=== PATIENT | male | born 1970 | race Caucasian/White ===

== ENCOUNTER 2016-12-01 22:18 | Emergency (ER) | payer SELFPAY ==
[~2016-12-01] VITALS: Ht 175.3 cm; Wt 130.0 kg
[2016-12-01 22:24] VITALS: BP 132/66; PULSE 83; RESP 18; TEMP 99; O2SAT 94
[2016-12-01] MEDS ORDERED: LIDOCAINE HCL 1% 50 ML VIAL INFIL ONE (22:30)
--- NOTE | 2016-12-01 22:32 | PD ---
HPI Chief Complaint: Laceration/Skin Injury Time Seen by Provider: 22:25 Travel History International Travel<30 days: No Contact w/Intl Traveler<30days: No Traveled to known affect area: No History of Present Illness HPI [id number] male presents with a laceration to the finger pad of the left fifth finger. He sustained prior to arrival and the patient was attempting to cut a piece of cheese. He has pain, aching, the site of the laceration. Denies any numbness, tingling, range of motion limitation. Last tetanus vaccination within 5 years. No other complaints. [facility] Past Medical History Diminished Hearing: No Past Surgical History Appendectomy: Yes Social History Alcohol Use: No Tobacco Use: No Substance Use: No Allergies-Medications (Allergen,Severity, Reaction): Coded Allergies: No Known Allergies (Verified , 12/01/16) Reported Meds & Prescriptions Reported Meds & Active Scripts Active Review of Systems Musculoskeletal: No: Limited ROM Skin: Positive Other (positive for laceration) Neurologic: No: Paresthesia Physical Exam Narrative GENERAL: Well developed well-nourished male in no acute distress SKIN: Warm and dry. Linear laceration fingerpad left fifth finger. CARDIOVASCULAR: Regular rate and rhythm. No murmur appreciated. RESPIRATORY: No accessory muscle use. Clear to auscultation. Breath sounds equal bilaterally. MUSCULOSKELETAL: No obvious deformities. Skin as noted above with no bony disturbance. Full flexion and extension at the MCP PIP/DIP joints of the affected finger. NEUROLOGICAL: Awake and alert. No obvious cranial nerve deficits. Motor grossly within normal limits. Normal speech. Data Data Last Documented VS Vital Signs Date Time Temp Pulse Resp B/P (MAP) Pulse Ox O2 Delivery O2 Flow Rate FiO2 12/01/16 22:24 99.0 83 18 132/66 (88) 94 Orders Orders Lidocaine 1% Inj (50 Ml) (Xylocaine 1% I (12/01/16 22:30) MDM Medical Decision Making Medical Screen Exam Complete: Yes Emergency Medical Condition: Yes Medical Record Reviewed: Yes Differential Diagnosis Laceration, neurovascular injury, open fracture, flexor tendon injury Narrative Course 46-year-old male presents with a laceration to the finger pad of the left fifth finger. The laceration was repaired with sutures, he verbally consented. He is stable for discharge. Procedures Procedure Narrative LACERATION LOCATION: Left fifth finger LENGTH: 1.5 cm NUMBER OF STITCHES/VÍCTOR: 6 REPAIR: The area of the laceration was prepped with Betadine and sterilely draped. The laceration was infiltrated with 1% lidocaine digital block. The wound was copiously irrigated and explored without evidence of foreign body, tendon injury or neurovascular injury. The wound was closed using 5-0 PROLENE simple interrupted. This was a single layer repair. A sterile dressing was applied. The patient was advised to keep the dressing clean and dry. Patient tolerated the procedure well. Diagnosis Primary Impression: Finger laceration Qualified Codes: S61.217A - Laceration without foreign body of left little finger without damage to nail, initial encounter Additional Instructions: Wash the wound with soap and water and apply antibiotic cream daily. Return in 10-14 days for suture removal. Med/Other Pt SpecificInfo: Wound Care Disposition: 01 DISCHARGE HOME Condition: Stable Hernan Noyola Dec 01, 2016 22:32
[2016-12-01] MEDS ORDERED: IBUPROFEN 800 MG TAB PO ONE (23:00)
== END 2016-12-01 23:27 | disposition home or self-care (01) ==
LOC: PHEFT 22:18
DX: S61.217A Laceration without foreign body of left little finger without damage to nail, initial encounter (principal); W26.0XXA Contact with knife, initial encounter
CPT/HCPCS: 12001

== ENCOUNTER 2016-12-07 19:57 | Emergency (ER) | payer SELFPAY ==
[~2016-12-07] VITALS: Ht 175.3 cm; Wt 129.6 kg
[2016-12-07 20:19] VITALS: BP 168/72; PULSE 70; RESP 16; TEMP 98.4; O2SAT 96
[2016-12-07 20:30] VITALS: BP 168/72; PULSE 70; RESP 15; TEMP 98.4; O2SAT 96
--- NOTE | 2016-12-07 20:40 | PD ---
HPI Chief Complaint: Headache Time Seen by Provider: 20:26 Travel History International Travel<30 days: No Contact w/Intl Traveler<30days: No Traveled to known affect area: No History of Present Illness HPI This patient complains of headache. Unusual for him a headache. He rates it 5 out of 10. Duration is one week. No thunderclap onset. It's left sided. No head injury or fever. No alleviating factors. No exacerbating factors. He takes no blood thinners. He tried Aleve but it didn't help PFSH Past Medical History Diminished Hearing: No Past Surgical History Appendectomy: Yes Tonsillectomy: Yes Social History Alcohol Use: Yes (social) Tobacco Use: Yes (1/2 pack) Substance Use: No Allergies-Medications (Allergen,Severity, Reaction): Coded Allergies: No Known Allergies (Verified , 12/01/16) Reported Meds & Prescriptions Reported Meds & Active Scripts Active Review of Systems General / Constitutional: No: Fever Eyes: No: Visual changes HENT: Positive: Headaches Cardiovascular: No: Chest Pain or Discomfort Respiratory: No: Shortness of Breath Gastrointestinal: No: Abdominal Pain Genitourinary: No: Dysuria Musculoskeletal: No: Pain Skin: No Rash Neurologic: Positive: Headache, No: Weakness Psychiatric: No: Depression Endocrine: No: Polydipsia Hematologic/Lymphatic: No: Easy Bruising Physical Exam Narrative GENERAL: Well-nourished, well-developed patient with headache . SKIN: Focused skin assessment reveals no rash and nodules. Skin is Warm and dry. HEAD: Atraumatic. Normocephalic. EYES: Pupils equal and round. No scleral icterus. No injection or drainage. ENT: No nasal bleeding or discharge. Mucous membranes pink and moist. NECK: Trachea midline. No JVD. No midline tenderness or meningeal signs CARDIOVASCULAR: Regular rate and rhythm. No murmur appreciated. RESPIRATORY: No accessory muscle use. Clear to auscultation. Breath sounds equal bilaterally. GASTROINTESTINAL: Abdomen soft, non-tender, nondistended. Hepatic and splenic margins not palpable. MUSCULOSKELETAL: No obvious deformities. No clubbing. No cyanosis. No edema. NEUROLOGICAL: Awake and alert. No obvious cranial nerve deficits. Motor grossly within normal limits. Normal speech. PSYCHIATRIC: Appropriate mood and affect; insight and judgment normal. Data Data Last Documented VS Vital Signs Date Time Temp Pulse Resp B/P (MAP) Pulse Ox O2 Delivery O2 Flow Rate FiO2 12/07/16 20:35 96 Room Air 12/07/16 20:30 98.4 70 15 168/72 (104) Orders Orders Ct Brain W/O Iv Contrast(Rout) (12/07/16 ) Acetamin-Hydrocod 325-5 Mg ([place] 5-325 (12/07/16 20:45) MDM Medical Decision Making Medical Screen Exam Complete: Yes Emergency Medical Condition: Yes Medical Record Reviewed: Yes Differential Diagnosis Differential diagnosis includes migraine, tension headache, cluster headache, meningitis. Narrative Course I have reviewed the patient's electronic medical record. Presentation not consistent with subarachnoid hemorrhage or meningitis. He is neurologically intact. Brain CT is normal 2 pain pills given On recheck he feels much better The patient was advised to follow up with their physician and return if they worsen. Diagnosis Primary Impression: Acute headache Qualified Codes: R51 - Headache Additional Instructions: The patient was advised to follow up with their physician and return if they worsen. Med/Other Pt SpecificInfo: Other Disposition: 01 DISCHARGE HOME Condition: Stable Saud Tran MD Dec 07, 2016 20:40
[2016-12-07] MEDS ORDERED: ACETAMINOPHEN/HYDROcodone 325 MG/5 MG TAB PO ONE (20:45)
--- NOTE | 2016-12-07 21:28 | RADRPT ---
EXAM DATE/TIME: 12/07/2016 20:44 [facility] COMPARISON: No previous studies available for comparison. INDICATIONS : Migraine type headache for 4 days RADIATION DOSE: 63.19 CTDIvol (mGy) MEDICAL HISTORY : None SURGICAL HISTORY : None. ENCOUNTER: Initial ACUITY: 4 - 6 days PAIN SCALE: 6/10 LOCATION: Left cranial TECHNIQUE: Multiple contiguous axial images were obtained of the head. Using automated exposure control and adj ustment of the mA and/or kV according to patient size, radiation dose was kept as low as reasonably a chievable to obtain optimal diagnostic quality images. DICOM format image data is available electro nically for review and comparison. FINDINGS: CEREBRUM: The ventricles are normal for age. No evidence of midline shift, mass lesion, hemorrhage or acute in farction. No extra-axial fluid collections are seen. POSTERIOR FOSSA: The cerebellum and brainstem are intact. The 4th ventricle is midline. The cerebellopontine angle i s unremarkable. EXTRACRANIAL: The visualized portion of the orbits is intact. SKULL: The calvaria is intact. No evidence of skull fracture. CONCLUSION: Normal examination. Dwayne Gutierrez MD on December 07, 2016 at 21:26 Board Certified Radiologist. This report was verified electronically.
[2016-12-07 21:37] VITALS: BP 150/70; PULSE 68; RESP 15; TEMP 98.4; O2SAT 97
[2016-12-07 21:40] VITALS: RESP 14
== END 2016-12-07 21:39 | disposition home or self-care (01) ==
LOC: PHED 19:57
DX: R51 Headache (principal); F17.210 Nicotine dependence, cigarettes, uncomplicated
CPT/HCPCS: 70450; 99285